=== PATIENT | female | born 1960 | race Caucasian/White ===

== ENCOUNTER → 2017-05-14 | Outpatient (CLI) | payer OTHER ==
[2017-05-14 14:17] LABS: BACTERIA, URINE RARE /hpf; BLOOD, URINE NEG (NEG); COMMENT (UR) CULT NOT INDICATED; CULTURE IF INDICATED CULT NOT INDICATED; GLUCOSE,URINE NEG (NEG); KETONE, URINE NEG (NEG); MUCUS URINE FEW /lpf (OCC); NITRITE,URINE NEG (NEG); SQUAMOUS EPITHELIAL CELL URINE 1 /hpf (0-5); URINE COLOR LIGHT-YELLOW (YELLW/STRAW)
[2017-05-14 14:20] LABS: AUTOMATED NEUTROPHIL # 4.7 TH/MM3 (1.8-7.7); BASOPHIL # 0.1 TH/MM3 (0-0.2); EOSINOPHIL # 0.1 TH/MM3 (0-0.4); EOSINOPHIL % 1.5 % (0.0-4.0); HEMATOCRIT 40.5 % (35.0-46.0); HEMO FLAGS DIFF FINAL; LYMPH % 24.7 % (9.0-44.0); LYMPHOCYTE # 1.7 TH/MM3 (1.0-4.8); MEAN CORPUSCULAR HEMOGLOBIN 28.3 PG (27.0-34.0); MEAN CORPUSCULAR HGB CONC 33.7 % (32.0-36.0); MONO % 5.8 % (0.0-8.0); PLATELET COUNT 228 TH/MM3 (150-450); RED BLOOD COUNT 4.82 MIL/MM3 (4.00-5.30); RED CELL DISTRIBUTION WIDTH 12.6 % (11.6-17.2)
--- NOTE | 2017-05-15 16:52 | EKG ---
Date Performed: 05/14/2017 Time Performed: 13:50:21 PTAGE: 56 years EKG: Sinus rhythm POSSIBLE LEFT ATRIAL ENLARGEMENT BORDERLINE LEFT AXIS DEVIATION LOW QRS VOLTAGE IN PRECORDIAL LEADS PATTERN CONSISTENT WITH PULMONARY DISEASE NONSPECIFIC T-WAVE ABNORMALITY BASELINE ARTIFACT AFFECTS IN TERPRETATION ABNORMAL ECG NO PREVIOUS TRACING DOCTOR: Juan A Mccauley Interpretating Date/Time 05/15/2017 16:50:20
== END ==
LOC: CPRE 13:15
PROVIDERS: ATTEND Obstetrics & Gynecology
DX: Z01.810 Encounter for preprocedural cardiovascular examination (principal); Z01.812 Encounter for preprocedural laboratory examination; D39.10 Neoplasm of uncertain behavior of unspecified ovary; R94.31 Abnormal electrocardiogram [ECG] [EKG]
CPT/HCPCS: 36415; 81001; 85025; 93005

== ENCOUNTER 2017-05-17 05:21 | Observation (INO) | payer OTHER ==
[~2017-05-17] VITALS: Ht 152.4 cm; Wt 85.2 kg
[2017-05-17 05:35] VITALS: BP 154/87; PULSE 89; RESP 16; TEMP 98.3; O2SAT 97
[2017-05-17] MEDS ORDERED: LACTATED RINGER'S 1000 ML IV PRN (05:45)
[2017-05-17] MEDS ORDERED: CLINDAMYCIN 600 MG/NS 100 ML IV PRN ×2 (05:45)
[2017-05-17] MEDS ORDERED: SODIUM CHLORID 0.9% 500 ML IV PRN (05:45)
[2017-05-17] MEDS ORDERED: CHLORHEXIDINE GLUCONATE 2 % 1 PACK (2 CLOTHS) TOPICAL PRN (05:45)
[2017-05-17] MEDS ORDERED: POVIDONE IODINE 5% (ANTISEPSIS KIT) 4 APPLICATIONS EACH NARE PRN (05:45)
[2017-05-17] MEDS ORDERED: ACETAMINOPHEN 1000 MG/100 ML VIAL IV PRN (05:45)
[2017-05-17] MEDS ORDERED: METOPROLOL TARTRATE 25 MG TAB PO PRN (05:45)
[2017-05-17] MEDS ORDERED: INSULIN HUMAN REGULAR 1,000 UNITS/10 ML VIAL SQ PRN (05:45)
[2017-05-17] MEDS ORDERED: SODIUM CHLORIDE 0.9% INJ 100 ML ONE (06:18)
[2017-05-17] MEDS ORDERED: MIDAZOLAM HCL 2 MG/2 ML VIAL ONE (07:20)
[2017-05-17] MEDS ORDERED: fentaNYL CITRATE 250 MCG/5 ML AMP ONE ×2 (07:20→09:56)
[2017-05-17] MEDS ORDERED: FAMOTIDINE 20 MG/2 ML VIAL ONE (07:21)
[2017-05-17] MEDS ORDERED: DEXAMETHASONE SOD PHOS 4 MG/ML VIAL ONE (07:21)
[2017-05-17] MEDS ORDERED: ONDANSETRON HCL 4 MG/2 ML VIAL ONE (07:21)
--- NOTE | 2017-05-17 07:26 | MH ---
cc: LINDA RODRIGUEZ DATE OF ADMISSION: 05/17/2017 ADMISSION DIAGNOSIS Pelvic mass. HISTORY OF PRESENT ILLNESS The patient is a 56-year-old white female, para 3-0-0-3 who was having orthopedic evaluation for hip discomfort. MRI of the pelvis on 04/29/2017 showed a 5.3 cm complex right adnexal mass suspicious of a neoplasm. There was no free fluid and no sign of metastatic disease. Bowel and bladder function are normal, appetite is good and she has not lost any white. Her CA-125 and -I testing were low risk for malignancy. She is now admitted for surgical evaluation. She has had a preop bowel prep. PAST MEDICAL HISTORY PREVIOUS SURGERY 1. MARVIN in 2000. 2. Neck fusion in 2000. 3. Lithotripsy in 2009. MEDICATIONS Vitamins. ALLERGIES PENICILLIN. TRANSFUSIONS None. OBSTETRICAL HISTORY She had three deliveries. SOCIAL HISTORY She is . She works for [employer]. Alcohol, tobacco and drugs are none. FAMILY HISTORY Her family history is noncontributory. PHYSICAL EXAMINATION GENERAL: A well-nourished, well-developed white female. VITAL SIGNS: Stable. HEENT: Exam is normal. CHEST: Clear. HEART: Regular rate. BREASTS: Symmetrical. ABDOMEN: Benign. PELVIC EXAM: There is a mobile mass about 6 cm. ASSESSMENT As above. PLAN She is now admitted for a laparoscopy, possible laparotomy pending the frozen section diagnosis. While in the office, explained the procedures, the risks, benefits and complications and possible need for additional surgery pending findings. Dr. Herrera has been contacted to be available in the event a malignancy is found and the patient agrees to proceed. MD MARIE Zhou/SSB /6:48 AM /7:16 AM
[2017-05-17] MEDS ORDERED: NEOSTIGMINE 3 MG/3 ML SYR IV ONE (08:14)
[2017-05-17] MEDS ORDERED: PROPOFOL 200 MG/20 ML AMP IV ONE (08:14)
[2017-05-17] MEDS ORDERED: KETOROLAC TROMETHAMINE 60 MG/2 ML (IM) VIAL IM ONE (08:14)
[2017-05-17] MEDS ORDERED: LACTATED RINGER'S 1000 ML INJ 1,000 ML IV ONE (08:14)
[2017-05-17] MEDS ORDERED: BUPIVACAINE/EPINEPHRINE 0.5% PF 30 ML VIAL INFIL ONE (08:36)
[2017-05-17] MEDS ORDERED: PROMETHAZINE INJ 25 MG/ML VIAL IM PRN (09:15)
[2017-05-17] MEDS ORDERED: diphenhydrAMINE HCL 25 MG CAP PO PRN (09:15)
[2017-05-17] MEDS ORDERED: PROMETHAZINE HCL 25 MG TAB PO PRN (09:15)
[2017-05-17] MEDS ORDERED: ONDANSETRON HCL 4 MG/2 ML VIAL IV PRN (09:15)
[2017-05-17] MEDS ORDERED: HYDROmorphone HCL PF 1 MG/ML VIAL IV PRN (09:15)
[2017-05-17] MEDS ORDERED: SODIUM CHLORIDE 0.9% FLUSH 5 ML FLUSH FLUSH PRN (09:15)
[2017-05-17] MEDS ORDERED: DO NOT ADM ANY ANTICOAGULANT DRUGS PRN (09:43)
[2017-05-17] MEDS: D5-1/2 NS + KCL 20 MEQ INJ 1,000 ML IV SCH ×2 (10:00→20:06)
[2017-05-17] MEDS ORDERED: FAMOTIDINE 20 MG/2 ML VIAL IV ONE (10:30)
[2017-05-17] MEDS ORDERED: DEXAMETHASONE SOD PHOS 4 MG/ML VIAL IV ONE (10:30)
[2017-05-17] MEDS ORDERED: MIDAZOLAM HCL 2 MG/2 ML VIAL IV ONE (10:30)
[2017-05-17] MEDS ORDERED: ONDANSETRON INJ 8 MG in DEXTROSE 5% IN WATER INJ 50 ML IV PRN ×2 (10:45)
[2017-05-17] MEDS: DOCUSATE SODIUM 100 MG CAP PO SCH ×2 (11:00→23:41)
[2017-05-17 13:47] LABS: HEMATOCRIT 40.8 % (35.0-46.0); REVIEW FLAG FINAL
[2017-05-17 15:00] VITALS: BP 124/72; PULSE 63; RESP 20; TEMP 96.5; O2SAT 95
[2017-05-17] MEDS: ACETAMINOPHEN 1000 MG/100 ML VIAL IV SCH ×2 (15:11→23:42)
[2017-05-17] MEDS: KETOROLAC TROMETHAMINE 30 MG/ML (IVP) VIAL IVP SCH ×2 (15:12→20:05)
[2017-05-17 20:00] VITALS: BP 108/67; PULSE 71; RESP 17; TEMP 96.3; O2SAT 96
[2017-05-17] MEDS: ONDANSETRON ODT 4 MG TAB PO PRN (20:04)
[2017-05-17] MEDS: SODIUM CHLORIDE 0.9% FLUSH 5 ML FLUSH FLUSH SCH (20:06)
[2017-05-17] MEDS ORDERED: ZOLPIDEM TARTRATE 5 MG TAB PO PRN (21:00)
[2017-05-18] VITALS: BP 106/60; PULSE 72; RESP 18; TEMP 97.5; O2SAT 96
[2017-05-18] MEDS: D5-1/2 NS + KCL 20 MEQ INJ 1,000 ML IV SCH ×2 (02:30→06:32)
[2017-05-18] MEDS: KETOROLAC TROMETHAMINE 30 MG/ML (IVP) VIAL IVP SCH ×2 (03:10→08:24)
[2017-05-18] MEDS: ONDANSETRON ODT 4 MG TAB PO PRN (03:10)
[2017-05-18 04:00] VITALS: BP 100/61; PULSE 79; RESP 17; TEMP 96.6; O2SAT 96
[2017-05-18] MEDS: ACETAMINOPHEN 1000 MG/100 ML VIAL IV SCH (06:32)
[2017-05-18 06:40] LABS: AUTOMATED NEUTROPHIL # 6.1 TH/MM3 (1.8-7.7); BASOPHIL % 0.5 % (0.0-2.0); EOSINOPHIL # 0.1 TH/MM3 (0-0.4); EOSINOPHIL % 0.6 % (0.0-4.0); HEMATOCRIT 37.7 % (35.0-46.0); HEMO FLAGS DIFF FINAL; LYMPHOCYTE # 2.1 TH/MM3 (1.0-4.8); MEAN CELL VOLUME 84.9 FL (80.0-100.0); MEAN CORPUSCULAR HEMOGLOBIN 27.9 PG (27.0-34.0); MEAN CORPUSCULAR HGB CONC 32.8 % (32.0-36.0); MONO % 8.5 % (0.0-8.0); NEUT % 67.4 % (16.0-70.0); PLATELET COUNT 192 TH/MM3 (150-450); RED BLOOD COUNT 4.44 MIL/MM3 (4.00-5.30); RED CELL DISTRIBUTION WIDTH 12.7 % (11.6-17.2); WHITE BLOOD COUNT 9.1 TH/MM3 (4.0-11.0)
[2017-05-18 07:02] LABS: BICARBONATE 25.4 MEQ/L (21.0-32.0); POTASSIUM 4.2 MEQ/L (3.5-5.1)
[2017-05-18 07:50] VITALS: BP 128/67; PULSE 70; RESP 20; TEMP 96.5; O2SAT 96
[2017-05-18] MEDS: SODIUM CHLORIDE 0.9% FLUSH 5 ML FLUSH FLUSH SCH (08:33)
[2017-05-18 11:50] VITALS: BP 125/70; PULSE 82; RESP 20; TEMP 97.6; O2SAT 94
--- NOTE | 2017-05-18 13:06 | MP ---
cc: LINDA RODRIGUEZ DATE OF SURGERY: 05/17/2017 PREOPERATIVE DIAGNOSIS Pelvic mass, probable right ovarian neoplasm. POSTOPERATIVE DIAGNOSIS Benign mucinous cystadenoma, right ovary. PROCEDURE Laparoscopy, lysis of adhesions, bilateral salpingo-oophorectomy. ANESTHESIA General endotracheal. SURGEON Linda Rodriguez MD CONVERTER OPERATOR NICOLAS Syed ESTIMATED BLOOD LOSS 25 cc. FLUIDS 1.1 liters crystalloid. OBJECTIVE FINDINGS Following the induction of adequate general endotracheal anesthesia the patient was prepped and draped supine on the operating table in the usual sterile fashion with the bladder being drained by Mensah catheterization. The abdomen was opened through a curving 3 cm infraumbilical incision using a knife to cut down from the skin to the fascia. The fascia was opened transversely and the peritoneum opened bluntly without incident. Digital palpation revealed some adhesions below the incision. The mini GelPort was placed, laparoscope was inserted. It was possible to see the midline adherence of the omentum. The right ovary was cystic and the left could not be seen at that point due to adhesions. A 5 mm port was introduced into the left lower quadrant. A Harmonic scalpel was used to take down the anterior omental adhesions. When this was completed it was possible to introduce a second 5 mm port in the right lower quadrant. Peritoneal washings were then collected. The right ovarian pedicle was taken with the Harmonic scalpel freeing up the right ovary and the residual right tube. This was placed in a pouch and extracted intact through the GelPort site. Adhesions of the omentum to the left adnexa were then lysed sharply. The left ovarian pedicle was isolated and taken with the Harmonic scalpel. The left tube and ovary which were quite small were extracted through the GelPort site. Irrigation was performed. No bleeding was evident. Frozen section returned benign mucinous cystadenoma. The ureters were inspected with good peristalsis. A low-pressure test was done and there was no bleeding. The operative site was now coated with Evicel. The GelPort was now removed. The peritoneum was sutured with running 2-0 Vicryl, the fascia with a running locking stitch of 0 Vicryl corner to midline and tied, subcu with running 3-0 Vicryl, and skin with running subcuticular 3-0 Monocryl. The scope was now reintroduced through the lower port sites to inspect the GelPort site which was well-closed. The pelvis was inspected and there was no bleeding. The scope was now removed, gas was allowed to escape. The small ports were closed with 3-0 Monocryl and covered with Dermabond. Prior to the subcuticular closure he wounds were all injected with Marcaine 25% with epinephrine for a total of about 15 cc. At the completion of the procedure the patient was awakened and taken to the recovery room in good condition. MD MARIE Zhou/ALMA /9:01 PM /1:00 PM
== END 2017-05-18 14:03 | disposition home or self-care (01) ==
LOC: HSDC 05:21 → EDUNIT# 07:30 → HSDI 09:17 → HOCB 14:13
PROVIDERS: ADMIT Obstetrics & Gynecology; ATTEND Obstetrics & Gynecology
PROC: 0UB74ZZ Excision of Bilateral Fallopian Tubes, Percutaneous Endoscopic Approach (ICD-10-PCS; 2017-05-17)
PROC: 0UT24ZZ Resection of Bilateral Ovaries, Percutaneous Endoscopic Approach (ICD-10-PCS; principal; 2017-05-17 07:23)
DX: D39.10 Neoplasm of uncertain behavior of unspecified ovary (principal); D27.0 Benign neoplasm of right ovary; N83.8 Other noninflammatory disorders of ovary, fallopian tube and broad ligament
CPT/HCPCS: 00840; 58661; 80048; 85014; 85018; 85025; 86850; 86900; 86901; 88305; 88331; 94150; G0378; J0131; J1885; J2405; J2710; J3010; J3480; J7120; J1100; J2250